=== PATIENT | male | born 1965 ===

== ENCOUNTER 2022-11-27 02:09 | Outpatient (RCR) | payer OTHER, SELFPAY ==
[2022-11-27] MEDS: Normal Saline Flush 10 ML SYR IVP (13:07)
[2022-11-27 13:48] LABS: Abs Immature Grans 0.01 10^3/uL (0.0-0.06); Absolute Basophil Count 0.05 10^3/uL (0.0-0.2); Absolute Eosinophil Count 0.21 10^3/uL (0.0-0.7); Absolute Lymphocyte Count 2.01 10^3/uL (1.2-3.4); Absolute Monocyte Count 0.66 10^3/uL (0.1-0.8); Absolute Neutrophil Count 4.12 10^3/uL (1.2-6.7); Basophils % 0.7; HGB 14.4 g/dL (13.5-17.5); Immature Grans % 0.1; Lymphocytes % 28.5; MCH 30.1 pg (27.0-33.0); MCHC 33.5 % (32.0-36.0); MCV 90 fL (80-95); MPV 10.7 fL (8.0-11.0); Monocytes % 9.3; Neutrophils % 58.4; Platelet Count 334 10^3/uL (130-400); RBC 4.78 10^6/uL (4.36-5.78); RDW 11.4 % (11.8-14.1); RDW-SD 37.7 fL; WBC 7.06 10^3/uL (4.4-10.8)
[2022-11-27 14:04] LABS: ALT 30 U/L (16-63); AST 15 U/L (15-37); Albumin 3.5 g/dL (3.4-5.0); Alkaline Phosphatase 102 U/L (46-116); Anion Gap 7.9 mmol/L (3-11); BUN 16 mg/dL (7-18); Bilirubin, Total 0.8 mg/dL (0.2-1.0); CO2 29.1 mmol/L (21.0-32.0); CREATININE 0.9 mg/dL (0.70-1.30); Calcium 8.8 mg/dL (8.5-10.1); Chloride 102 mmol/L (98-107); Estimated GFR 99.62 (mL/min/1.73m2); Glucose 94 mg/dL (74-106); Magnesium 1.8 mg/dL (1.8-2.4); Sodium 139 mmol/L (136-145); Total Protein 7.5 g/dL (6.4-8.2)
== END 2022-11-30 23:59 | disposition home or self-care (01) ==
LOC: INF 02:09
PROVIDERS: Visit Provider Internal Medicine Hematology & Oncology
DX: C10.9 Malignant neoplasm of oropharynx, unspecified (principal); Z45.2 Encounter for adjustment and management of vascular access device
CPT/HCPCS: 36591; 80053; 83735; 85025

== ENCOUNTER 2022-12-25 01:55 | Outpatient (RCR) | payer OTHER, SELFPAY ==
[2022-12-05] MEDS: Normal Saline Flush 10 ML SYR IVP (07:38)
[2022-12-05 07:53] LABS: Abs Immature Grans 0.05 10^3/uL (0.0-0.06); Absolute Basophil Count 0.06 10^3/uL (0.0-0.2); Absolute Eosinophil Count 0.15 10^3/uL (0.0-0.7); Absolute Lymphocyte Count 1.27 10^3/uL (1.2-3.4); Absolute Monocyte Count 0.91 10^3/uL (0.1-0.8); Absolute Neutrophil Count 5.41 10^3/uL (1.2-6.7); Basophils % 0.8; Eosinophils % 1.9; HCT 42.2 % (40.0-50.0); HGB 14.5 g/dL (13.5-17.5); Immature Grans % 0.6; Lymphocytes % 16.2; MCHC 34.4 % (32.0-36.0); MCV 87 fL (80-95); MPV 9.9 fL (8.0-11.0); Monocytes % 11.6; Neutrophils % 68.9; Platelet Count 321 10^3/uL (130-400); RBC 4.83 10^6/uL (4.36-5.78); RDW 10.8 % (11.8-14.1); RDW-SD 34.5 fL; WBC 7.85 10^3/uL (4.4-10.8)
[2022-12-05 08:06] LABS: ALT 49 U/L (16-63); AST 16 U/L (15-37); Albumin 3.3 g/dL (3.4-5.0); Alkaline Phosphatase 106 U/L (46-116); Anion Gap 7.7 mmol/L (3-11); BUN 14 mg/dL (7-18); Bilirubin, Total 0.4 mg/dL (0.2-1.0); CO2 30.3 mmol/L (21.0-32.0); Calcium 8.9 mg/dL (8.5-10.1); Chloride 98 mmol/L (98-107); Estimated GFR 87.78 (mL/min/1.73m2); Glucose 95 mg/dL (74-106); Magnesium 1.8 mg/dL (1.8-2.4); Potassium 3.5 mmol/L (3.5-5.1); Sodium 136 mmol/L (136-145); Total Protein 7.2 g/dL (6.4-8.2)
[2022-12-11] MEDS: Normal Saline Flush 10 ML SYR IVP (11:00)
[2022-12-11 11:40] LABS: Abs Immature Grans 0.02 10^3/uL (0.0-0.06); Absolute Basophil Count 0.03 10^3/uL (0.0-0.2); Absolute Eosinophil Count 0.13 10^3/uL (0.0-0.7); Absolute Lymphocyte Count 0.93 10^3/uL (1.2-3.4); Absolute Monocyte Count 0.57 10^3/uL (0.1-0.8); Absolute Neutrophil Count 4.84 10^3/uL (1.2-6.7); Basophils % 0.5; HCT 39.2 % (40.0-50.0); Immature Grans % 0.3; Lymphocytes % 14.3; MCH 29.8 pg (27.0-33.0); MCHC 33.2 % (32.0-36.0); MCV 90 fL (80-95); MPV 9.7 fL (8.0-11.0); Monocytes % 8.7; Neutrophils % 74.2; Platelet Count 266 10^3/uL (130-400); RBC 4.36 10^6/uL (4.36-5.78); RDW 11.5 % (11.8-14.1); RDW-SD 37.2 fL; WBC 6.52 10^3/uL (4.4-10.8)
[2022-12-11 11:56] LABS: ALT 27 U/L (16-63); AST 11 U/L (15-37); Albumin 3.2 g/dL (3.4-5.0); Alkaline Phosphatase 97 U/L (46-116); Anion Gap 6.5 mmol/L (3-11); BUN 11 mg/dL (7-18); Bilirubin, Total 0.6 mg/dL (0.2-1.0); CO2 28.5 mmol/L (21.0-32.0); CREATININE 0.9 mg/dL (0.70-1.30); Calcium 8.5 mg/dL (8.5-10.1); Chloride 101 mmol/L (98-107); Estimated GFR 99.62 (mL/min/1.73m2); Glucose 92 mg/dL (74-106); Magnesium 1.9 mg/dL (1.8-2.4); Potassium 4.1 mmol/L (3.5-5.1); Sodium 136 mmol/L (136-145); Total Protein 7.3 g/dL (6.4-8.2)
[2022-12-18] MEDS: Normal Saline Flush 10 ML SYR IVP (08:39)
[2022-12-18 08:53] LABS: Abs Immature Grans 0.01 10^3/uL (0.0-0.06); Absolute Basophil Count 0.02 10^3/uL (0.0-0.2); Absolute Eosinophil Count 0.07 10^3/uL (0.0-0.7); Absolute Neutrophil Count 2.19 10^3/uL (1.2-6.7); Basophils % 0.6; Eosinophils % 1.9; HCT 39.7 % (40.0-50.0); HGB 13.9 g/dL (13.5-17.5); Immature Grans % 0.3; Lymphocytes % 19.5; MCH 30.9 pg (27.0-33.0); MCV 88 fL (80-95); MPV 9.3 fL (8.0-11.0); Monocytes % 16.7; Platelet Count 300 10^3/uL (130-400); RDW 11.7 % (11.8-14.1); WBC 3.59 10^3/uL (4.4-10.8)
[2022-12-18 09:09] LABS: ALT 21 U/L (16-63); AST 13 U/L (15-37); Albumin 3.3 g/dL (3.4-5.0); Alkaline Phosphatase 103 U/L (46-116); Anion Gap 7.9 mmol/L (3-11); BUN 13 mg/dL (7-18); Bilirubin, Total 0.6 mg/dL (0.2-1.0); CO2 29.1 mmol/L (21.0-32.0); CREATININE 0.8 mg/dL (0.70-1.30); Calcium 9.5 mg/dL (8.5-10.1); Chloride 97 mmol/L (98-107); Estimated GFR 103.22 (mL/min/1.73m2); Glucose 98 mg/dL (74-106); Potassium 3.9 mmol/L (3.5-5.1); Sodium 134 mmol/L (136-145)
[2022-12-25] MEDS: Normal Saline Flush 10 ML SYR IVP (12:43)
[2022-12-25 13:54] LABS: Abs Immature Grans 0.02 10^3/uL (0.0-0.06); Absolute Basophil Count 0.05 10^3/uL (0.0-0.2); Absolute Eosinophil Count 0.06 10^3/uL (0.0-0.7); Absolute Lymphocyte Count 0.69 10^3/uL (1.2-3.4); Absolute Monocyte Count 0.92 10^3/uL (0.1-0.8); Absolute Neutrophil Count 3.57 10^3/uL (1.2-6.7); Basophils % 0.9; Eosinophils % 1.1; HCT 40.2 % (40.0-50.0); HGB 14.4 g/dL (13.5-17.5); Immature Grans % 0.4; MCH 30.8 pg (27.0-33.0); MCHC 35.8 % (32.0-36.0); MCV 86 fL (80-95); Monocytes % 17.3; Neutrophils % 67.3; Platelet Count 229 10^3/uL (130-400); RBC 4.68 10^6/uL (4.36-5.78); RDW 11.2 % (11.8-14.1); RDW-SD 35.1 fL; WBC 5.31 10^3/uL (4.4-10.8)
[2022-12-25 14:16] LABS: ALT 84 U/L (16-63); AST 31 U/L (15-37); Albumin 3.4 g/dL (3.4-5.0); Alkaline Phosphatase 97 U/L (46-116); Anion Gap 9.6 mmol/L (3-11); BUN 16 mg/dL (7-18); Bilirubin, Total 0.7 mg/dL (0.2-1.0); CO2 28.4 mmol/L (21.0-32.0); CREATININE 0.9 mg/dL (0.70-1.30); Calcium 9.4 mg/dL (8.5-10.1); Chloride 92 mmol/L (98-107); Estimated GFR 99.62 (mL/min/1.73m2); Glucose 106 mg/dL (74-106); Magnesium 1.9 mg/dL (1.8-2.4); Potassium 3.5 mmol/L (3.5-5.1); Sodium 130 mmol/L (136-145); Total Protein 7.9 g/dL (6.4-8.2)
== END 2022-12-30 23:59 | disposition home or self-care (01) ==
LOC: INF 01:55
PROVIDERS: Visit Provider Internal Medicine Hematology & Oncology
DX: C10.9 Malignant neoplasm of oropharynx, unspecified (principal); Z45.2 Encounter for adjustment and management of vascular access device
CPT/HCPCS: 36415; 36591; 80053; 83735; 85025

== ENCOUNTER 2023-01-22 11:20 | Outpatient (RCR) | payer OTHER, SELFPAY ==
[2023-01-01] MEDS: Normal Saline Flush 10 ML SYR IVP (12:48)
[2023-01-01 13:29] LABS: Abs Immature Grans 0.02 10^3/uL (0.0-0.06); Absolute Basophil Count 0.02 10^3/uL (0.0-0.2); Absolute Eosinophil Count 0.04 10^3/uL (0.0-0.7); Absolute Monocyte Count 0.57 10^3/uL (0.1-0.8); Absolute Neutrophil Count 3.67 10^3/uL (1.2-6.7); Basophils % 0.4; Eosinophils % 0.8; HGB 12.9 g/dL (13.5-17.5); Immature Grans % 0.4; Lymphocytes % 10.4; MCH 30.6 pg (27.0-33.0); MCHC 33.9 % (32.0-36.0); MCV 90 fL (80-95); MPV 9.5 fL (8.0-11.0); Monocytes % 11.8; Neutrophils % 76.2; Platelet Count 251 10^3/uL (130-400); RBC 4.21 10^6/uL (4.36-5.78); RDW 11.8 % (11.8-14.1); RDW-SD 37.5 fL; WBC 4.82 10^3/uL (4.4-10.8)
[2023-01-01 13:44] LABS: ALT 27 U/L (16-63); AST 12 U/L (15-37); Alkaline Phosphatase 96 U/L (46-116); Anion Gap 5.3 mmol/L (3-11); BUN 13 mg/dL (7-18); Bilirubin, Total 0.3 mg/dL (0.2-1.0); CO2 30.7 mmol/L (21.0-32.0); CREATININE 0.8 mg/dL (0.70-1.30); Calcium 9.2 mg/dL (8.5-10.1); Chloride 98 mmol/L (98-107); Estimated GFR 103.22 (mL/min/1.73m2); Glucose 76 mg/dL (74-106); Magnesium 1.9 mg/dL (1.8-2.4); Potassium 4.1 mmol/L (3.5-5.1); Sodium 134 mmol/L (136-145); Total Protein 7.6 g/dL (6.4-8.2)
[2023-01-08] MEDS: Normal Saline Flush 10 ML SYR IVP (12:16)
[2023-01-08 12:37] LABS: HGB 12.4 g/dL (13.5-17.5); MCH 30.5 pg (27.0-33.0); MCHC 33.5 % (32.0-36.0); MCV 91 fL (80-95); MPV 9.1 fL (8.0-11.0); Platelet Count 266 10^3/uL (130-400); RBC 4.06 10^6/uL (4.36-5.78); RDW 12.2 % (11.8-14.1); RDW-SD 39.8 fL
[2023-01-08 12:48] LABS: ALT 21 U/L (16-63); AST 12 U/L (15-37); Albumin 2.8 g/dL (3.4-5.0); Alkaline Phosphatase 94 U/L (46-116); Anion Gap 4.6 mmol/L (3-11); BUN 19 mg/dL (7-18); Bilirubin, Total 0.3 mg/dL (0.2-1.0); CO2 31.4 mmol/L (21.0-32.0); CREATININE 0.8 mg/dL (0.70-1.30); Calcium 9.2 mg/dL (8.5-10.1); Chloride 98 mmol/L (98-107); Estimated GFR 103.22 (mL/min/1.73m2); Glucose 89 mg/dL (74-106); Magnesium 2.1 mg/dL (1.8-2.4); Potassium 4.1 mmol/L (3.5-5.1); Sodium 134 mmol/L (136-145); Total Protein 7.6 g/dL (6.4-8.2)
[2023-01-08 12:49] LABS: WBC 1.43 10^3/uL (4.4-10.8)
[2023-01-08 13:11] LABS: Absolute Eosinophil Count 0.03 10^3/uL (0.0-0.7); Absolute Lymphocyte Count 0.34 10^3/uL (1.2-3.4); Absolute Monocyte Count 0.54 10^3/uL (0.1-0.8); Absolute Neutrophil Count 0.51 10^3/uL (1.2-6.7); Bands % 1
[2023-01-08 13:12] LABS: Diff Comment Manual Differential; RBC Morphology Normal
[2023-01-15] MEDS: Normal Saline Flush 10 ML SYR IVP (09:19)
[2023-01-15 09:43] LABS: Abs Immature Grans 0.01 10^3/uL (0.0-0.06); Absolute Basophil Count 0.02 10^3/uL (0.0-0.2); Absolute Eosinophil Count 0.06 10^3/uL (0.0-0.7); Absolute Lymphocyte Count 0.31 10^3/uL (1.2-3.4); Absolute Monocyte Count 0.43 10^3/uL (0.1-0.8); Absolute Neutrophil Count 2.46 10^3/uL (1.2-6.7); Basophils % 0.6; Eosinophils % 1.8; HCT 37.2 % (40.0-50.0); HGB 12.3 g/dL (13.5-17.5); Immature Grans % 0.3; Lymphocytes % 9.4; MCH 30.1 pg (27.0-33.0); MCHC 33.1 % (32.0-36.0); MCV 91 fL (80-95); MPV 9.1 fL (8.0-11.0); Monocytes % 13.1; Neutrophils % 74.8; Platelet Count 288 10^3/uL (130-400); RBC 4.08 10^6/uL (4.36-5.78); RDW 12.3 % (11.8-14.1); RDW-SD 40.4 fL; WBC 3.29 10^3/uL (4.4-10.8)
[2023-01-15 10:00] LABS: ALT 32 U/L (16-63); AST 13 U/L (15-37); Albumin 2.7 g/dL (3.4-5.0); Alkaline Phosphatase 92 U/L (46-116); Anion Gap 5.7 mmol/L (3-11); BUN 17 mg/dL (7-18); Bilirubin, Total 0.3 mg/dL (0.2-1.0); CO2 31.3 mmol/L (21.0-32.0); CREATININE 0.7 mg/dL (0.70-1.30); Calcium 9.2 mg/dL (8.5-10.1); Chloride 101 mmol/L (98-107); Estimated GFR 107.47 (mL/min/1.73m2); Glucose 148 mg/dL (74-106); Sodium 138 mmol/L (136-145); Total Protein 7.4 g/dL (6.4-8.2)
[2023-01-22] MEDS: Heparin 500 UNITS/5 ML SYRINGE IV (11:41)
[2023-01-22] MEDS: Normal Saline Flush 10 ML SYR IVP (11:41)
[2023-01-22 11:54] LABS: Abs Immature Grans 0.02 10^3/uL (0.0-0.06); Absolute Basophil Count 0.02 10^3/uL (0.0-0.2); Absolute Eosinophil Count 0.01 10^3/uL (0.0-0.7); Absolute Monocyte Count 0.52 10^3/uL (0.1-0.8); Absolute Neutrophil Count 1.69 10^3/uL (1.2-6.7); Basophils % 0.8; Eosinophils % 0.4; HCT 35.8 % (40.0-50.0); HGB 12.2 g/dL (13.5-17.5); Immature Grans % 0.8; Lymphocytes % 11.7; MCH 30.8 pg (27.0-33.0); MCHC 34.1 % (32.0-36.0); MCV 90 fL (80-95); MPV 9.6 fL (8.0-11.0); Monocytes % 20.3; Platelet Count 336 10^3/uL (130-400); RBC 3.96 10^6/uL (4.36-5.78); RDW 12.3 % (11.8-14.1); RDW-SD 40.2 fL; WBC 2.56 10^3/uL (4.4-10.8)
[2023-01-22 12:08] LABS: ALT 72 U/L (16-63); AST 26 U/L (15-37); Albumin 2.8 g/dL (3.4-5.0); Alkaline Phosphatase 87 U/L (46-116); Anion Gap 7.9 mmol/L (3-11); BUN 18 mg/dL (7-18); Bilirubin, Total 0.3 mg/dL (0.2-1.0); CO2 30.1 mmol/L (21.0-32.0); CREATININE 0.7 mg/dL (0.70-1.30); Chloride 100 mmol/L (98-107); Estimated GFR 107.47 (mL/min/1.73m2); Glucose 116 mg/dL (74-106); Magnesium 1.9 mg/dL (1.8-2.4); Potassium 4.1 mmol/L (3.5-5.1); Sodium 138 mmol/L (136-145); Total Protein 7.2 g/dL (6.4-8.2)
== END 2023-01-30 23:59 | disposition home or self-care (01) ==
LOC: INF 11:20
PROVIDERS: Visit Provider Internal Medicine Hematology & Oncology
DX: C10.9 Malignant neoplasm of oropharynx, unspecified (principal); Z45.2 Encounter for adjustment and management of vascular access device
CPT/HCPCS: 36591; 80053; 83735; 85025

== ENCOUNTER 2023-02-12 02:15 | Outpatient (RCR) | payer OTHER, SELFPAY ==
[2023-02-12] MEDS: Heparin 500 UNITS/5 ML SYRINGE IV (13:19)
[2023-02-12] MEDS: Normal Saline Flush 10 ML SYR IVP (13:19)
[2023-02-12 13:29] LABS: Abs Immature Grans 0.01 10^3/uL (0.0-0.06); Absolute Basophil Count 0.02 10^3/uL (0.0-0.2); Absolute Eosinophil Count 0.07 10^3/uL (0.0-0.7); Absolute Lymphocyte Count 0.61 10^3/uL (1.2-3.4); Absolute Monocyte Count 0.49 10^3/uL (0.1-0.8); Absolute Neutrophil Count 1.63 10^3/uL (1.2-6.7); Basophils % 0.7; Eosinophils % 2.5; HCT 36.2 % (40.0-50.0); HGB 12.4 g/dL (13.5-17.5); Immature Grans % 0.4; Lymphocytes % 21.6; MCH 31.5 pg (27.0-33.0); MCHC 34.3 % (32.0-36.0); MCV 92 fL (80-95); MPV 9.4 fL (8.0-11.0); Monocytes % 17.3; Neutrophils % 57.5; Platelet Count 177 10^3/uL (130-400); RBC 3.94 10^6/uL (4.36-5.78); RDW 13.7 % (11.8-14.1); RDW-SD 46.1 fL; WBC 2.83 10^3/uL (4.4-10.8)
[2023-02-12 13:48] LABS: ALT 35 U/L (16-63); AST 22 U/L (15-37); Albumin 3.1 g/dL (3.4-5.0); Alkaline Phosphatase 96 U/L (46-116); Anion Gap 8.6 mmol/L (3-11); BUN 18 mg/dL (7-18); Bilirubin, Total 0.4 mg/dL (0.2-1.0); CO2 30.4 mmol/L (21.0-32.0); CREATININE 0.8 mg/dL (0.70-1.30); Calcium 9.3 mg/dL (8.5-10.1); Chloride 101 mmol/L (98-107); Estimated GFR 103.22 (mL/min/1.73m2); Glucose 86 mg/dL (74-106); Magnesium 2.1 mg/dL (1.8-2.4); Potassium 4.1 mmol/L (3.5-5.1); Sodium 140 mmol/L (136-145); Total Protein 7.6 g/dL (6.4-8.2)
== END 2023-03-01 23:59 | disposition home or self-care (01) ==
LOC: INF 02:15
PROVIDERS: Visit Provider Internal Medicine Hematology & Oncology
DX: C10.9 Malignant neoplasm of oropharynx, unspecified (principal); Z45.2 Encounter for adjustment and management of vascular access device
CPT/HCPCS: 36591; 80053; 83735; 85025

== ENCOUNTER → 2023-03-14 02:16 | Outpatient (CLI) | payer OTHER, SELFPAY ==
--- NOTE | 2023-03-14 | DI.RAD_ITS ---
Exam(s) RF MODIFIED SPEECH BA SWALLOW TECHNIQUE: Modified barium swallow was performed in conjunction with speech pathology. CONTRAST MATERIAL: Multiple consistencies of oral barium contrast were administered. COMPARISON: No exams were available for comparison FINDINGS: Note that this is not a dedicated esophagram, distal esophagus not evaluated. Flash laryngeal penetration was demonstrated with thin liquids. There is no evidence of marion aspira tion or penetration with any consistency. Speech pathology report to follow. IMPRESSION: Flash laryngeal penetration with thin liquids.. RADIATION DOSE DELIVERED: samia Kiran=6.38 mGy
[2023-03-14] MEDS: Barium Sulfate 40% W/V 240 ML BTL PO (15:17)
[2023-03-14] MEDS: Barium Sulfate 81% w/w for Oral Suspension 148 GM BTL PO (15:18)
[2023-03-14] MEDS: Barium Sulfate Oral Paste 40% W/V 230 ML TUBE PO (15:19)
--- NOTE | 2023-03-14 17:16 | ST.MBS_ITS ---
Date of Service Date of service: 03/14/23 Time of Service: 14:30 Modified Barium Swallow Study Findings: Video fluoroscopic Swallowing Evaluation (VFSE) / Modified Barium Swallow Study (MBSS) Speech Language Pathology Report Patient referred for VFSE/MBSS from Dr. Hinkle given chemo-radiation related swallow changes. 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 He had a feeding tube placed 11/01/2022 and completed chemo-radiation treatment in mid-December 2022. His treatment course was complicated by mucositis, xerostomia, oral-pharyngeal pain, dysgeusia and emesis. He also experienced some mild reduced jaw excursion during treatment, though still within the range of normal. Engaged with CYBER FOR[employer]ICS ANALYST throughout treatment process to monitor swallow function, safety, and for HEP training for prophylactic pharyngocise. Patient current report: Patient ate spectrum of textures at thanksgiving meals. He felt this was too much for him and took 2 weeks off of solids after this, used tube feeds exclusively. Last week, he felt pain/sensitivity had decreased significantly and he re-introduced PO including solid foods. This reportedly went very well and he has not used his feeding tube since then. He reports his weight has held steady for the past 5-6 days, at 165lbs. He reports continued significant dry mouth, gag reflex, and some lingual pain at biopsy site, particularly with cold liquids. Dysgeusia has improved significantly and taste is largely back to baseline. IMPRESSIONS: Overall swallow function appears safe/WFL at this time. There was no aspiration. Only flash penetration with large volumes thin liquids and barium tablet appeared to transit PES and into stomach without difficulty. Oral, laryngeal, and pharyngeal motility was within functional limits of normal. Primary barriers to PO intake are pain/sensitivity and dry mouth at this time. No diet texture restrictions but patient should be conscientious with volume/speed of liquid consumption and take steps to mitigate effects of dry m outh. Provided reinforcement of education as relates to late effects of radiation and rationale for continuing pharyngocise HEP. No further CYBER FORENSICS ANALYST services are needed at this time. Please re-refer as needed if changes to swallow function occur or further radiation treatment is indicated in the future. RECOMMENDATIONS: Diet Texture Recommendation:? IDDSI LEVEL SOLIDS 7-Regular Solids LIQUIDS 0-Thin Liquids MEDICATIONS As tolerated Diet texture modification is per patient's preference; please adjust diet textures at patient's discretion & collaboration with care team. Do not alter medications (e.g., cut)? without advice from your MD or pharmacist. Risk Management Strategies:? Behavioral reflux precautions, including upright position during + 90 mins after meals. Small sips, approx 10 mL Control risk factors for aspiration pneumonia via (a) thorough oral hygiene & (b) maintaining physical mobility as tolerated PLAN: Therapy: Follow up with treating CYBER FORENSICS ANALYST as needed. ----- OBJECTIVE Videofluoroscopic Swallow Evaluation (VFSE/MBSS) was conducted in the lateral projection by Speech-Language Pathologist, in collaboration with Radiologist, to evaluate oropharyngeal swallow function. Anatomic view under fluoroscopy: WFL PO Barium Contrast Trials Oral barium water-soluble contrast was administered as follows: IDDSI Level 0 Varibar thin liquid (40% w/v) IDDSI Level 4 Varibar pudding/pureed/extremely thick (40% w/v) IDDSI Level 7 Regular Solid: 1/2 brandon cracker coated in 3 mL Varibar pudding 13 mm barium tablet taken with Thin Liquids. MBSImP Component Scores: COMPONENT Scale SCORE 1 Lip closure (0-4) 0 Resulted in no labial escape 2 Hold Position (0-3) 0 Maintained a cohesive bolus between tongue to palatal seal 3 Bolus Preparation (0-4) 1 Resulted in slow prolonged chewing/mashing with complete re-collection 4 Bolus Transport (0-4) 1 Demonstrated delayed initiation of tongue motion 5 Oral Residue (0-4) 1 Was a trace, lining oral structures 6 Swallow Initiation (0-4) 2 Occurred as bolus head at posterior laryngeal surface of epiglottis 7 Soft Palate Elevation (0-4) 0 Resulted in no bolus between soft palate and the pharyngeal wall 8 Laryngeal Elevation (0-3) 1 Was decreased with partial superior movement of thyroid cartilage/partial approximation of arytenoids to epiglottic petiole 9 Anterior Hyoid Motion (0-2) 0 Demonstrated complete anterior movement 10 Epiglottic Movement (0-2) 0 Resulted in complete inversion 11 Laryngeal Closure (0-2) 1 Was incomplete with narrow a column of air/contrast in laryngeal vestibule 12 Pharyngeal Stripping Wave (0-2) 0 Was present and complete 13 Pharyngeal Contraction (0-3) NA 14 PES Opening (0-3) 0 Was completely distended and complete duration with no obstruction of flow 15 Tongue Base Retraction (0-4) 1 Allowed a trace column of contrast or air between tongue base and pharyngeal wall 16 Pharyngeal Residue (0-4) 1 Showed a trace within or on pharyngeal structures 17 Esophageal Clearance (0-4) NA Results: COMPONENT Scale SCORE 1 Oral Score (0-18) 4 2 Pharyngeal Score (0-29) 2 3 Esophageal Score (0-4) 0 Penetration-Aspiration Scale: COMPONENT Scale SCORE 1 Thin liquid (1-8) 2 Contrast entered the airway, remained above the vocal folds, and was ejected from the airway. 2 [place] thick (1-8) NA 3 Honey thick (1-8) NA 4 Pudding thick (1-8) 1 Contrast did not enter the airway 5 Cookie (1-8) 1 Contrast did not enter the airway Functional Oral Intake Scale: COMPONENT Scale SCORE 1 Pre-Study (1-7) 6 Total oral intake with no special preparation, but must avoid specific foods or liquid items 2 Post-Study (1-7) 6 Total oral intake with no special preparation, but must avoid specific foods or liquid items DIGEST: COMPONENT Scale SCORE 1 Thin Max PAS (1-8) 2 Contrast entered the airway, remained above the vocal folds, and was ejected from the airway. 2 [place] Max PAS (1-8) NA 3 Honey Max PAS (1-8) NA 4 Liquid Max PAS (1-8) 2 Maximum PAS Score over all liquid trials 5 Liquid Max Residue (0-3) 0 below 10% 6 Pudding Max PAS (1-8) 1 Contrast did not enter the airway 7 Pudding Max Residue (0-3) 0 below 10% 8 Cracker Max PAS (1-8) 1 Contrast did not enter the airway 9 Cracker Max Residue (0-3) 0 below 10% 10 Frequency if PAS >= 3 (0-3) NA 11 Amount if PAS >= 5 (0-1) NA Results: COMPONENT Scale SCORE 1 SAFETY GRADE (0-4) 0 Safety grade for swallowing based on patterns of aspiration or laryngeal penetration 2 EFFICIENCY GRADE (0-4) 0 Efficiency grade of swallowing based on patterns of pharyngeal residue 3 DIGEST (0-4) 0 Severity grade of pharyngeal dysphagia: 0 - Normal, 1 - Mild, 2 - Moderate, 3 - Severe, 4 - Life threatening 4 Max Exam PAS (1-8) 2 Maximum PAS Score over all bolus trials 5 Max Exam Residue (0-3) 0 Maximum Exam Residue over all bolus trials Trialed Compensatory Strategies & Outcome: Maneuvers Successful (+) Unsuccessful (-) Postures Successful (+) Unsuccessful (-) 3 second Preparatory Set ?+/- Chin Tuck Posture ? Cough ? Posterior Head tilt ? Reflexive ? Cued ? ? ? Throat Clear ? Head Tilt to ? Reflexive? Left? Cued? Right? ? Saliva swallow? ? Head Turn ? Supraglottic Swallow? Left? ? Super-supraglottic Swallow? Right? ? Bolus Modifications Successful (+) Unsuccessful (-) Delivery/Alternating Consistencies ? Follow with Liquid Wash ? Follow with Solid Bolus? Delivery/Via Straw? ? Reduced Volume? ?+ Reduced Rate of Intake? ?+ Increased Viscosity? ? Other:?? ? Thank you for allowing us to take part in this patient's care. Please feel free to contact the [facility] Speech Language Pathology Department with any questions/concerns. Coding CPT Codes MOTION FLUOROSCOPY/SWALLOW - [id number] ([id number])
== END ==
PROVIDERS: Visit Provider Speech-Language Pathologist
DX: C10.9 Malignant neoplasm of oropharynx, unspecified (principal)
CPT/HCPCS: 92526; 74221

== ENCOUNTER 2024-01-25 18:57 | Outpatient (REF) | payer OTHER, SELFPAY ==
[2024-01-25 15:39] LABS: TSH 3.63 uIU/mL (0.36-3.74)
== END 2024-01-25 18:58 | disposition home or self-care (01) ==
LOC: LBN 18:57
PROVIDERS: Visit Provider Preventive Medicine Undersea and Hyperbaric Medicine
DX: C10.9 Malignant neoplasm of oropharynx, unspecified (principal)
CPT/HCPCS: 84443